=== PATIENT | female | born 1965 | race Caucasian/White ===

== ENCOUNTER 2017-07-22 20:15 | Emergency (ER) | payer SELFPAY ==
--- NOTE | 2017-07-22 20:17 | UC ---
Skin Complaint HPI - HPI Summary HPI Summary: 52 YEAR OLD FEMALE PRESENTS WITH COMPLAINS OF A RASH SECONDARY TO POISON IVORY. - History of Current Complaint Time Seen by Provider: 07/22/17 20:16 Stated Complaint: RASH Hx Obtained From: Patient Onset/Duration: Sudden Onset Skin Exposure Onset/Duration: Hours Ago Onset Severity: Moderate Current Severity: Moderate Pain Scale Used: 0-10 Numeric - 5 Location: Generalized - Allergy/Home Medications Allergies/Adverse Reactions: Allergies Allergy/AdvReac Type Severity Reaction Status Date / Time Bee Pollen Allergy Rash Verified 07/22/17 20:21 Home Medications: Home Medications Cetirizine* [ZyrTEC 10 MG TAB*] 10 mg PO ONCE 07/22/17 [History Confirmed ] Review of Systems Constitutional: Negative Skin: Rash Eyes: Negative ENT: Negative Respiratory: Negative Cardiovascular: Negative Gastrointestinal: Negative Genitourinary: Negative Motor: Negative Neurovascular: Negative Musculoskeletal: Negative Neurological: Negative Psychological: Negative All Other Systems Reviewed And Are Negative: Yes PMH/Surg Hx/FS Hx/Imm Hx Previously Healthy: Yes Physical Exam Triage Information Reviewed: Yes Eye Exam: Normal ENT Exam: Normal Dental Exam: Normal Neck exam: Normal Neck: Positive: 1 Respiratory Exam: Normal Cardiovascular Exam: Normal Abdominal Exam: Normal Musculoskeletal Exam: Normal Neurological Exam: Normal Psychological Exam: Normal Skin: Positive: rashes Course/Dx - Diagnoses Provider Diagnoses: RASH. POISON IVORY Discharge - Discharge Plan Condition: Stable Disposition: HOME Prescriptions: LoraTADine TAB(NF) [Claritin 10 MG TAB(NF)] 10 mg PO DAILY #30 tab Ranitidine HCl [Zantac 150 Maximum Streng] 150 mg PO BID #30 tab Triamcinolone 0.1% CREAM (NF) [Kenalog 0.1% Cream (NF)] 1 applic TOPICAL TID PRN #90 gm PRN Reason: Itching predniSONE TAB* [Deltasone TAB*] 40 mg PO DAILY #10 tab Patient Education Materials: Poison Yu (ED), Acute Rash (ED) Referrals: Pineda Stuart MD [Medical Doctor] -
[2017-07-22 20:26] VITALS: BP 134/83
[2017-07-22] MEDS ORDERED: LoraTADine TAB(NF) 10 MG TAB (AUTOSUB to CETIRIZINE) PO ONE (20:32)
[2017-07-22] MEDS ORDERED: methylPREDNISolone 125 MG* 2 ML VIAL IM ONE (20:32)
== END 2017-07-22 21:10 | disposition home or self-care (01) ==
LOC: UCEAST 20:15
DX: L23.7 Allergic contact dermatitis due to plants, except food (principal); J30.2 Other seasonal allergic rhinitis
CPT/HCPCS: 96372; 99202; A9270-GY; G0463; J2930

== ENCOUNTER 2018-06-19 21:54 | Emergency (ER) | payer SELFPAY ==
[2018-06-19 22:10] VITALS: BP 131/76
--- NOTE | 2018-06-19 22:10 | UC ---
Skin Complaint HPI - HPI Summary HPI Summary: 53 yo female presents with breaking out in hives for the last 2-3 weeks. She says that it started initially with a single cluster of hives on her chest, but since that time has spread to her b/l arms and, most recently, her legs. Unsure what initially caused this reaction. No new soaps or detergents. Denies fever, chills, SOB, trouble breathing, or chest pain. Rash is very itchy. She has applied hydrocortisone cream with little relief. - History of Current Complaint Chief Complaint: UCSkin Time Seen by Provider: 06/19/18 22:10 Stated Complaint: HIVES Hx Obtained From: Patient Onset/Duration: Gradual Onset Skin Exposure Onset/Duration: Days Ago Onset Severity: Mild Current Severity: Mild Pain Intensity: 1 Pain Scale Used: 0-10 Numeric - Allergy/Home Medications Allergies/Adverse Reactions: Allergies Allergy/AdvReac Type Severity Reaction Status Date / Time bee venom protein (honey bee) Allergy Rash Verified 06/19/18 22:10 Home Medications: Home Medications diphenhydrAMINE HCl [Benadryl Allergy] 25 mg PO 06/19/18 [History] Review of Systems Constitutional: Negative Skin: Rash Respiratory: Negative Cardiovascular: Negative Gastrointestinal: Negative Neurovascular: Negative Neurological: Negative Psychological: Negative All Other Systems Reviewed And Are Negative: Yes PMH/Surg Hx/FS Hx/Imm Hx - Additional Past Medical History Additional PMH: None Previously Healthy: Yes - Surgical History Surgical History: Yes Surgery Procedure, Year, and Place: left ankle - Family History Known Family History: Positive: None - Social History Occupation: Employed Full-time Lives: With Family Alcohol Use: Rare Substance Use Type: None Smoking Status (MU): Never Smoked Tobacco Physical Exam - Summary Physical Exam Summary: GENERAL: NAD. WDWN. No pain distress. SKIN: Scattered hives on chest, upper arms, upper legs, and abdomen. No streaking, bleeding, or drainage. NECK: Supple. Nontender. No lymphadenopathy. CHEST: No accessory muscle use. Breathing comfortably and in no distress. CV: Pulses intact NEURO: Alert. CN II-XII grossly intact. PSYCH: Age appropriate behavior. Triage Information Reviewed: Yes Vital Signs: Initial Vital Signs Temp 97.8 F 06/19/18 22:06 Pulse 63 06/19/18 22:06 Resp 18 06/19/18 22:06 BP 131/76 06/19/18 22:06 Pulse Ox 98 06/19/18 22:06 Vital Signs Reviewed: Yes Course/Dx - Course Course Of Treatment: urticaria - rx for prednisone and steroid cream. F/u if no change - Diagnoses Provider Diagnoses: urticaria Discharge - Sign-Out/Discharge Documenting (check all that apply): Patient Departure - Discharge Plan Condition: Stable Disposition: HOME Prescriptions: predniSONE TAB* [Deltasone 20 MG TAB*] 40 mg PO DAILY #21 tab Triamcinolone 0.1% CREAM (NF) [Kenalog 0.1% Cream (NF)] 1 applic TOPICAL BID #1 tube Patient Education Materials: Urticaria (ED) Referrals: Roger Arthur MD [Primary Care Provider] - Additional Instructions: If you develop a fever, shortness of breath, chest pain, new or worsening symptoms - please call your PCP or go to the ED. - Billing Disposition and Condition Condition: STABLE Disposition: Home
== END 2018-06-19 22:26 | disposition home or self-care (01) ==
LOC: UCEAST 21:54
DX: L50.9 Urticaria, unspecified (principal)
CPT/HCPCS: 99212; G0463